=== PATIENT | female | born 1960 | race Caucasian/White ===

== ENCOUNTER 2016-04-18 09:15 | Emergency (ER) | payer OTHER ==
[~2016-04-18] VITALS: Ht 154.9 cm; Wt 55.3 kg
[~2016-04-18 09:15] MED LIST: CHANTIX1 MG PO; LORAZEPAM1 MG PO; TEMAZEPAM30 MG PO
[2016-04-18 10:53] VITALS: BP 124/79
== END 2016-04-18 10:40 | disposition left against medical advice (07) ==
LOC: EME 09:15
DX: M54.42 Lumbago with sciatica, left side (principal); R26.2 Difficulty in walking, not elsewhere classified; R11.0 Nausea; Z72.0 Tobacco use
CPT/HCPCS: 99281; 99283; J3360